=== PATIENT | male | born 1975 | race Caucasian/White ===

== ENCOUNTER 2024-05-18 13:08 | Outpatient (OUT) | payer OTHER, SELFPAY ==
--- NOTE | 2024-05-18 13:15 | US_ITS ---
[address] [address] Patient Name: YANCY ALEJO MRN: [id number] date: 1975 Sex: M Assigned Patient Location: US Current Patient Location: Accession/Order Number: [id number] Exam Date: 05/18/2024 13:20 Report Date: 05/18/2024 14:55 At the request of: SHADI GALEANO Procedure: US scrotum doppler EXAM: US scrotum doppler HISTORY: right testicle hydocele vs hernia COMPARISON: None. TECHNIQUE: Grayscale, color and Doppler FINDINGS: The right testicle is normal in size, contour and homogeneous echotexture measuring 5.0 x 2.7 x 4.2 cm. Normal color and Doppler flow The right epididymis contains a 2.6 cm area of anechoic echogenicity, cyst versus spermatocele. No right hydrocele. Small right varicocele. The left testicle is normal in size, contour and homogeneous echotexture measuring 5.0 x 2.6 x 3.6 cm. Normal color and Doppler flow The left epididymis contains several areas of anechoic echogenicity measuring up to 3 mm, cysts are favored. No left hydrocele. Small left varicocele Right inguinal tubular fluid collection. Heterogeneous appearance of the left inguinal region US/US scrotum doppler IMPRESSION: Small bilateral varicoceles Suspected bilateral inguinal hernias containing a bowel loop in the right and mesenteric fat in the left Electronically authenticated by: MALU GOLDSTEIN Date: 05/18/2024 14:55
== END 2024-05-18 13:09 | disposition home or self-care (01) ==
LOC: US 13:09
PROVIDERS: PCP Family Medicine; Visit Provider Family Medicine
DX: Z00.00 Encounter for general adult medical examination without abnormal findings (principal); I86.1 Scrotal varices
CPT/HCPCS: 76870; 93976